=== PATIENT | male | born 1965 | race Caucasian/White ===

== ENCOUNTER → 2020-03-31 11:50 | Outpatient (BNVA) | payer SELFPAY | PROVIDERS: Family Provider Nurse Practitioner Family; PCP Nurse Practitioner Family; Referring Provider Nurse Practitioner Family; Visit Provider Nurse Practitioner Family | DX: M25.561 Pain in right knee (principal); M79.642 Pain in left hand; M79.641 Pain in right hand | CPT/HCPCS: 73130; 73562 ==

== ENCOUNTER → 2020-06-01 09:58 | Outpatient (BNVA) | payer SELFPAY | PROVIDERS: Family Provider Nurse Practitioner Family; PCP Nurse Practitioner Family; Visit Provider Internal Medicine Rheumatology | DX: M05.79 Rheumatoid arthritis with rheumatoid factor of multiple sites without organ or systems involvement (principal); M75.52 Bursitis of left shoulder; Z79.899 Other long term (current) drug therapy; F17.210 Nicotine dependence, cigarettes, uncomplicated | CPT/HCPCS: 20610; 99204; J1030 ==

== ENCOUNTER → 2020-06-03 12:52 | Outpatient (BNVA) | payer SELFPAY | PROVIDERS: Family Provider Nurse Practitioner Family; PCP Nurse Practitioner Family; Visit Provider Internal Medicine Rheumatology | DX: Z79.899 Other long term (current) drug therapy (principal); Z11.59 Encounter for screening for other viral diseases; Z11.1 Encounter for screening for respiratory tuberculosis | CPT/HCPCS: 36415; 82306; 85651; 86140; 86480; 86704; 86803; 87340 ==

== ENCOUNTER 2020-06-04 08:52 | Outpatient (CLI) | payer SELFPAY ==
--- NOTE | 2020-06-04 09:12 | XR_ITS ---
WS: [id number] RIGHT HAND: 3 VIEW(S) TECHNIQUE: PA, oblique and lateral. HISTORY: rheumatoid arthritis COMPARISON: 03/31/2020 No acute fracture or dislocation. No soft tissue or bone abnormality. Mild narrowing of the interphalangeal joint spaces. XR/XR hand RT min 3V* [id number] IMPRESSION: Mild osteoarthritis.
--- NOTE | 2020-06-04 09:12 | XR_ITS ---
WS: [id number] LEFT FOOT: 3 VIEW(S) TECHNIQUE: AP, oblique and lateral. HISTORY: rheumatoid arthritis COMPARISON: None available. No acute fracture or dislocation. Normal tarsal/metatarsal alignment. No soft tissue abnormality or bone destruction. No erosions at the metatarsal heads or osteopenia. Small calcaneal spur. XR/XR foot LT min 3V* [id number] IMPRESSION: 1. Small calcaneal spur. 2. No erosions at the metatarsal heads.
--- NOTE | 2020-06-04 09:12 | XR_ITS ---
WS: [id number] LEFT HAND: 3 VIEW(S) TECHNIQUE: PA, oblique and lateral. HISTORY: rheumatoid arthritis COMPARISON: 03/31/2020 No acute fracture or dislocation. Prior amputation involving the distal fourth phalanx and 50% of the fourth middle phalanx. No erosion s at the metacarpal heads. No subluxations or significant osteopenia. Mild degenerative changes at th e interphalangeal joint third finger. XR/XR hand LT min 3V* [id number] IMPRESSION: 1. No changes of inflammatory arthritis. 2. Partial amputation fourth finger.
--- NOTE | 2020-06-04 09:12 | XR_ITS ---
WS: [id number] RIGHT KNEE: 3 VIEW(S) TECHNIQUE: AP, oblique(s) and lateral. HISTORY: rheumatoid arthritis COMPARISON: 03/31/2020 Mild narrowing of the medial and patellofemoral joint spaces with osteophytes and hypertrophic bone f ormation. No displacement. No fracture. No joint effusion. No soft tissue abnormality. XR/XR knee RT 3V* [id number] IMPRESSION: 1. Mild medial and patellofemoral joint space arthritis. 2. No erosions or osteopenia.
--- NOTE | 2020-06-04 09:12 | XR_ITS ---
WS: [id number] CHEST 2 VIEWS HISTORY: rheumatoid arthritis COMPARISON: None available. Lungs: Mild pulmonary hyperexpansion. Flattening of the diaphragms. No pneumonia. Normal vasculature. Cardiac size: Normal. Mediastinum/Aorta: Mild atherosclerosis aorta. Bones: Normal. Lucencies in the distal clavicles may be early changes of rheumatoid arthritis. XR/XR chest 2V* [id number] IMPRESSION: 1. Mild chronic emphysema. No pneumonia. 2. Mild atherosclerosis aorta.
--- NOTE | 2020-06-04 09:12 | XR_ITS ---
WS: [id number] RIGHT FOOT: 3 VIEW(S) TECHNIQUE: AP, oblique and lateral. HISTORY: rheumatoid arthritis COMPARISON: None available. No acute fracture or dislocation. Normal tarsal/metatarsal alignment. No soft tissue abnormality or bone destruction. Small bony spur along the ventral aspect of the talus. No metatarsal head erosions. XR/XR foot RT min 3V* [id number] IMPRESSION: Minimal spurring involving the anterior talus. No erosions.
== END 2020-06-04 08:53 | disposition home or self-care (01) ==
LOC: RADWPI 08:56
PROVIDERS: Family Provider Nurse Practitioner Family; PCP Nurse Practitioner Family; Visit Provider Internal Medicine Rheumatology
DX: M06.9 Rheumatoid arthritis, unspecified (principal); M19.041 Primary osteoarthritis, right hand; Z89.022 Acquired absence of left finger(s); M77.32 Calcaneal spur, left foot; M77.31 Calcaneal spur, right foot; J43.9 Emphysema, unspecified; I70.0 Atherosclerosis of aorta
CPT/HCPCS: 71046; 73130; 73562; 73630

== ENCOUNTER → 2020-08-25 11:13 | Outpatient (BNVA) | payer SELFPAY | PROVIDERS: Family Provider Nurse Practitioner Family; PCP Nurse Practitioner Family; Visit Provider Internal Medicine Rheumatology | DX: M05.79 Rheumatoid arthritis with rheumatoid factor of multiple sites without organ or systems involvement (principal); M17.11 Unilateral primary osteoarthritis, right knee; Z79.899 Other long term (current) drug therapy; F17.210 Nicotine dependence, cigarettes, uncomplicated | CPT/HCPCS: 99214 ==

== ENCOUNTER → 2020-12-22 13:22 | Outpatient (BNVA) | payer SELFPAY | PROVIDERS: Family Provider Nurse Practitioner Family; PCP Nurse Practitioner Family; Visit Provider Internal Medicine Rheumatology | DX: M05.79 Rheumatoid arthritis with rheumatoid factor of multiple sites without organ or systems involvement (principal); Z79.899 Other long term (current) drug therapy; M17.11 Unilateral primary osteoarthritis, right knee; M75.52 Bursitis of left shoulder; F17.210 Nicotine dependence, cigarettes, uncomplicated | CPT/HCPCS: 99214 ==

== ENCOUNTER → 2021-04-06 13:27 | Outpatient (BNVA) | payer SELFPAY | PROVIDERS: Family Provider Nurse Practitioner Family; PCP Nurse Practitioner Family; Visit Provider Internal Medicine Rheumatology | DX: M05.79 Rheumatoid arthritis with rheumatoid factor of multiple sites without organ or systems involvement (principal); M17.11 Unilateral primary osteoarthritis, right knee; R29.6 Repeated falls; M75.52 Bursitis of left shoulder; Z79.899 Other long term (current) drug therapy; Z71.89 Other specified counseling; F17.200 Nicotine dependence, unspecified, uncomplicated | CPT/HCPCS: 99214 ==

== ENCOUNTER 2021-04-20 08:29 | Outpatient (CLI) | payer SELFPAY ==
--- NOTE | 2021-04-20 08:45 | MR_ITS ---
WS: [id number] MRI RIGHT KNEE NONCONTRAST TECHNIQUE: Axial PD, coronal PD fat sat, coronal PD, sagittal PD, and sagittal PD fat-sat images obta ined. CLINICAL INFORMATION: R29.6 - Repeated falls COMPARISON: None. FINDINGS: Distal quadriceps and patella tendons are intact. Normal ACL and PCL. Hypertrophic patella. Small sup rapatellar effusion. Moderate to advanced degenerative arthritis medial and lateral joint compartment s worse involving the medial joint compartment with hypertrophic changes along the joint line. Chroni c thinning of the medial and lateral meniscus. Small horizontal tear along the undersurface posterior horn medial meniscus extending to the articular surface. Normal lateral meniscus. Grade III chondromalacia patella. No subchondral edema. Diffuse subcutaneous edema about the knee jeff nt. Small popliteal cyst measuring 2.1 x 3.3 CM. Medial and lateral collateral ligaments are intact. Mode rate peripheral extrusion of the medial meniscus MR/MR knee RT wo con* [id number] IMPRESSION: 1. Normal ACL and PCL. 2. Advanced tricompartmental arthritis worse involving the medial joint compar tment and patellofemoral articulation. 3. Chronic thinning of the medial and lateral meniscus with horizontal tear po sterior horn medial meniscus extending to the articular surface. Peripheral ext rusion of the medial meniscus. 4. [id number] articulation involving the medial joint compartment with a tin y amount of subchondral edema and grade IV chondromalacia. 5. Grade III chondromalacia patella. 6. Small suprapatellar effusion with subcutaneous edema about the knee joint. 7. Small lobulated popliteal cyst. Outbridge grading:
== END 2021-04-20 08:30 | disposition home or self-care (01) ==
PROVIDERS: PCP Nurse Practitioner Family; Visit Provider Internal Medicine Rheumatology
DX: M25.569 Pain in unspecified knee (principal); R29.6 Repeated falls; S89.91XA Unspecified injury of right lower leg, initial encounter
CPT/HCPCS: 73721

== ENCOUNTER → 2021-06-10 13:57 | Outpatient (BNVA) | payer SELFPAY | PROVIDERS: PCP Family Medicine; Visit Provider Internal Medicine Rheumatology | DX: M05.79 Rheumatoid arthritis with rheumatoid factor of multiple sites without organ or systems involvement (principal); Z79.899 Other long term (current) drug therapy; M17.11 Unilateral primary osteoarthritis, right knee; R29.6 Repeated falls; Z82.61 Family history of arthritis; Z71.89 Other specified counseling; F17.200 Nicotine dependence, unspecified, uncomplicated | CPT/HCPCS: 99214 ==

== ENCOUNTER → 2021-09-28 10:47 | Outpatient (BNVA) | payer SELFPAY | PROVIDERS: PCP Family Medicine; Visit Provider Internal Medicine Rheumatology | DX: M05.79 Rheumatoid arthritis with rheumatoid factor of multiple sites without organ or systems involvement (principal); Z79.899 Other long term (current) drug therapy | CPT/HCPCS: 80076; 82565; 85025; 86140 ==

== ENCOUNTER → 2022-05-10 13:51 | Outpatient (BNVA) | payer MEDICARE, SELFPAY | PROVIDERS: PCP Family Medicine; Visit Provider Internal Medicine Rheumatology | DX: M05.79 Rheumatoid arthritis with rheumatoid factor of multiple sites without organ or systems involvement (principal); Z79.899 Other long term (current) drug therapy; Z71.89 Other specified counseling; M17.11 Unilateral primary osteoarthritis, right knee; R29.6 Repeated falls; M75.52 Bursitis of left shoulder | CPT/HCPCS: 80076; 82565; 85025; 86140; 99214 ==

== ENCOUNTER → 2022-07-20 13:58 | Outpatient (BNVA) | payer MEDICARE, SELFPAY | PROVIDERS: PCP Family Medicine; Visit Provider Internal Medicine Rheumatology | DX: M05.79 Rheumatoid arthritis with rheumatoid factor of multiple sites without organ or systems involvement (principal); Z79.899 Other long term (current) drug therapy; R74.01 Elevation of levels of liver transaminase levels; Z71.89 Other specified counseling; M75.52 Bursitis of left shoulder; Z82.61 Family history of arthritis; F17.200 Nicotine dependence, unspecified, uncomplicated | CPT/HCPCS: 99214 ==

== ENCOUNTER 2022-07-25 08:15 | Outpatient (CLI) | payer MEDICARE, SELFPAY ==
--- NOTE | 2022-07-25 08:30 | US_ITS ---
WS: [id number] RIGHT UPPER QUADRANT ULTRASOUND HISTORY: R79.89 - Other specified abnormal findings of blood chemi... COMPARISON: None available. Liver: 20.8 cm in length. Moderately enlarged liver. Coarsened echotexture. No mass. Portal Vein: Normal hepatopetal flow with monophasic waveform. Gallbladder: Normally distended gallbladder with very small mobile stones. No wall thickening or danny cholecystic fluid. CBD: 0.5 cm Pancreas: Normal size and echogenicity. Right kidney: 11.4 cm in length. Normal size and echogenicity. No hydronephrosis or mass. Aorta and IVC: Unremarkable abdominal aorta and IVC. No ascites. US/US liver [id number] IMPRESSION: 1. Cholelithiasis. No evidence for acute cholecystitis. There is very small mo bile stones layering in the gallbladder. 2. Moderate hepatomegaly with mild hepatic steatosis.
== END 2022-07-25 08:16 | disposition home or self-care (01) ==
PROVIDERS: PCP Family Medicine; Visit Provider Internal Medicine Rheumatology
DX: R79.89 Other specified abnormal findings of blood chemistry (principal)
CPT/HCPCS: 76705

== ENCOUNTER → 2022-10-18 13:57 | Outpatient (BNVA) | payer MEDICARE, SELFPAY | PROVIDERS: PCP Family Medicine; Visit Provider Internal Medicine Rheumatology | DX: M05.79 Rheumatoid arthritis with rheumatoid factor of multiple sites without organ or systems involvement (principal); Z79.899 Other long term (current) drug therapy; R74.01 Elevation of levels of liver transaminase levels; Z71.89 Other specified counseling; M75.52 Bursitis of left shoulder; Z82.61 Family history of arthritis; F17.200 Nicotine dependence, unspecified, uncomplicated | CPT/HCPCS: 99214 ==

== ENCOUNTER 2023-01-11 06:55 | Outpatient (CLI) | payer MEDICARE, SELFPAY ==
--- NOTE | 2023-01-11 07:15 | CT_ITS ---
WS: [id number] LDCT LUNG CANCER SCREENING TECHNIQUE: Noncontrast CT of the chest with coronal and sagittal reformatted images. CLINICAL INFORMATION: lung cancer screening COMPARISON: None. DLP: 137.79 mGy.cm DIvol: Mean CTDIvol: 3.10 (mGy) All CT scans at [facility] use at least one of these dose optimization techniques: automat ed exposure control; mA and/or kV adjustment per patient size (includes targeted exams where dose is matched to clinical indication); or iterative reconstruction. FINDINGS: Normal caliber thoracic aorta. No mediastinal or hilar lymphadenopathy. Coronary calcification. No ax illary lymphadenopathy. No suspicious pulmonary parenchymal abnormalities. Adrenal glands are normal. Cholelithiasis. Normal GE junction. Hypertrophic changes thoracic spine. CT/CT lung screening [id number] IMPRESSION: Cholelithiasis. This can be followed up with ultrasound. LUNG-RADS: 1S-Negative with Significant Findings FOLLOW UP: 12 Month: Continue annual screening with LDCT
== END 2023-01-11 06:56 | disposition home or self-care (01) ==
LOC: RAD 06:57
PROVIDERS: PCP Family Medicine; Visit Provider Internal Medicine Pulmonary Disease
DX: Z12.2 Encounter for screening for malignant neoplasm of respiratory organs (principal); R06.02 Shortness of breath; Z71.6 Tobacco abuse counseling
CPT/HCPCS: 71271

== ENCOUNTER → 2023-01-17 13:09 | Outpatient (BNVA) | payer MEDICARE, SELFPAY | PROVIDERS: PCP Family Medicine; Visit Provider Internal Medicine Rheumatology | DX: M05.79 Rheumatoid arthritis with rheumatoid factor of multiple sites without organ or systems involvement (principal); Z79.899 Other long term (current) drug therapy; Z71.89 Other specified counseling | CPT/HCPCS: 99214 ==

== ENCOUNTER 2023-01-25 07:52 | Outpatient (CLI) | payer MEDICARE, SELFPAY | END 2023-01-25 07:53 | disposition home or self-care (01) | LOC: RT 07:54 | PROVIDERS: PCP Family Medicine; Visit Provider Internal Medicine Pulmonary Disease | DX: R06.02 Shortness of breath (principal) | CPT/HCPCS: 94010; 94618; 94726; 94729; 99204 ==

== ENCOUNTER 2023-03-16 20:00 | Outpatient (CLI) | payer MEDICARE, SELFPAY | END 2023-03-16 20:01 | disposition home or self-care (01) | LOC: SLEEP 03-17 05:04 | PROVIDERS: PCP Family Medicine; Visit Provider Internal Medicine Pulmonary Disease | DX: G47.33 Obstructive sleep apnea (adult) (pediatric) (principal); R06.00 Dyspnea, unspecified; G47.36 Sleep related hypoventilation in conditions classified elsewhere | CPT/HCPCS: 95810 ==

== ENCOUNTER → 2023-04-18 13:16 | Outpatient (BNVA) | payer MEDICARE, SELFPAY | PROVIDERS: PCP Family Medicine; Visit Provider Internal Medicine Rheumatology | DX: M05.79 Rheumatoid arthritis with rheumatoid factor of multiple sites without organ or systems involvement (principal); Z79.899 Other long term (current) drug therapy; Z71.89 Other specified counseling; Z82.61 Family history of arthritis; F17.210 Nicotine dependence, cigarettes, uncomplicated | CPT/HCPCS: 99214 ==

== ENCOUNTER → 2023-07-25 13:20 | Outpatient (BNVA) | payer MEDICARE, SELFPAY | PROVIDERS: PCP Family Medicine; Visit Provider Internal Medicine Rheumatology | DX: Z79.899 Other long term (current) drug therapy (principal); M05.79 Rheumatoid arthritis with rheumatoid factor of multiple sites without organ or systems involvement; Z71.89 Other specified counseling | CPT/HCPCS: 99214 ==

== ENCOUNTER → 2023-11-08 12:28 | Outpatient (BNVA) | payer MEDICARE, SELFPAY | PROVIDERS: PCP Family Medicine; Visit Provider Internal Medicine Rheumatology | DX: M05.79 Rheumatoid arthritis with rheumatoid factor of multiple sites without organ or systems involvement (principal); Z79.899 Other long term (current) drug therapy; Z71.89 Other specified counseling | CPT/HCPCS: 99214 ==

== ENCOUNTER → 2023-11-17 09:11 | Outpatient (BNVA) | payer MEDICARE, SELFPAY | PROVIDERS: PCP Family Medicine; Visit Provider Internal Medicine Pulmonary Disease | DX: G47.30 Sleep apnea, unspecified (principal); R06.02 Shortness of breath; M05.79 Rheumatoid arthritis with rheumatoid factor of multiple sites without organ or systems involvement; E66.9 Obesity, unspecified; Z68.41 Body mass index [BMI] 40.0-44.9, adult; Z12.2 Encounter for screening for malignant neoplasm of respiratory organs; Z87.891 Personal history of nicotine dependence | CPT/HCPCS: 99214 ==

== ENCOUNTER → 2024-04-10 13:17 | Outpatient (BNVA) | payer MEDICARE, SELFPAY | PROVIDERS: PCP Family Medicine; Visit Provider Internal Medicine Rheumatology | DX: M05.79 Rheumatoid arthritis with rheumatoid factor of multiple sites without organ or systems involvement (principal); M75.52 Bursitis of left shoulder; Z79.899 Other long term (current) drug therapy; Z71.85 Encounter for immunization safety counseling; Z11.1 Encounter for screening for respiratory tuberculosis; F17.210 Nicotine dependence, cigarettes, uncomplicated | CPT/HCPCS: 99214 ==

== ENCOUNTER → 2024-08-14 15:10 | Outpatient (BNVA) | payer MEDICARE, SELFPAY | PROVIDERS: PCP Family Medicine; Visit Provider Internal Medicine Rheumatology | DX: Z79.899 Other long term (current) drug therapy (principal); M05.79 Rheumatoid arthritis with rheumatoid factor of multiple sites without organ or systems involvement; M75.52 Bursitis of left shoulder; Z71.89 Other specified counseling; F17.210 Nicotine dependence, cigarettes, uncomplicated | CPT/HCPCS: 36415; 80076; 82565; 85025; 85651; 86140; 99214 ==

== ENCOUNTER → 2024-12-04 13:35 | Outpatient (BNVA) | payer MEDICARE, SELFPAY | PROVIDERS: PCP Family Medicine; Visit Provider Internal Medicine Rheumatology | DX: M05.79 Rheumatoid arthritis with rheumatoid factor of multiple sites without organ or systems involvement (principal); Z79.899 Other long term (current) drug therapy; Z71.89 Other specified counseling | CPT/HCPCS: 36415; 80076; 82565; 82947; 83036; 85025; 85651; 86140; 99214 ==

== ENCOUNTER → 2025-01-07 13:54 | Outpatient (BNVA) | payer MEDICARE, SELFPAY | PROVIDERS: Family Provider Nurse Practitioner; PCP Nurse Practitioner; Referring Provider Internal Medicine Rheumatology; Visit Provider Internal Medicine Rheumatology | DX: R74.8 Abnormal levels of other serum enzymes (principal) | CPT/HCPCS: 80076 ==

== ENCOUNTER → 2025-01-28 13:09 | Outpatient (BNVA) | payer MEDICARE, SELFPAY | PROVIDERS: Family Provider Nurse Practitioner; PCP Nurse Practitioner; Visit Provider Nurse Practitioner Family | DX: L85.8 Other specified epidermal thickening (principal); S50.912A Unspecified superficial injury of left forearm, initial encounter; L82.1 Other seborrheic keratosis; D22.4 Melanocytic nevi of scalp and neck; D48.5 Neoplasm of uncertain behavior of skin; L91.8 Other hypertrophic disorders of the skin; R20.9 Unspecified disturbances of skin sensation; R20.8 Other disturbances of skin sensation; R23.8 Other skin changes; L53.8 Other specified erythematous conditions; L57.0 Actinic keratosis; X58.XXXA Exposure to other specified factors, initial encounter | CPT/HCPCS: 11104; 17000; 17110; 99203 ==

== ENCOUNTER → 2025-03-13 09:35 | Outpatient (BNVA) | payer MEDICARE, SELFPAY | PROVIDERS: PCP Family Medicine; Visit Provider Internal Medicine Rheumatology | DX: M05.79 Rheumatoid arthritis with rheumatoid factor of multiple sites without organ or systems involvement (principal); Z79.899 Other long term (current) drug therapy; Z71.89 Other specified counseling | CPT/HCPCS: 36415; 80076; 82306; 82565; 85025; 85651; 86140; 86480; 86704; 86803; 87340; 99214 ==

== ENCOUNTER → 2025-03-17 11:29 | Outpatient (BNVA) | payer MEDICARE, SELFPAY | PROVIDERS: PCP Family Medicine; Visit Provider Nurse Practitioner | DX: E11.9 Type 2 diabetes mellitus without complications (principal) | CPT/HCPCS: 83036 ==

== ENCOUNTER 2025-04-10 08:04 | Oncology outpatient (recurring) (ONCR) | payer MEDICARE, SELFPAY ==
[2025-04-10 08:32] VITALS: BP 157/94; PULSE 73; TEMP 35.9; O2SAT 95
[2025-04-10] MEDS: diphenhydrAMINE 50 mg/mL SDV 1mL 25 MG IVP (09:45)
[2025-04-10] MEDS: abatacept 500 MG in sodium chloride 0.9% (100 ml) 100 ML 200 MG IV (10:27)
[2025-04-10 11:16] VITALS: BP 162/88; PULSE 58; TEMP 36.2; O2SAT 95
[2025-04-10] MEDS: methylPREDNISolone sod succ 40 mg/mL INJ 20 MG IVP ×2 (11:39→12:23)
[2025-04-10 12:42] VITALS: BP 165/84; PULSE 59; TEMP 35.9; O2SAT 95
== END 2025-04-10 23:59 | disposition home or self-care (01) ==
PROVIDERS: PCP Family Medicine; Visit Provider Internal Medicine Rheumatology
DX: M06.9 Rheumatoid arthritis, unspecified (principal); Z79.899 Other long term (current) drug therapy
CPT/HCPCS: 96365; 96375; A4222; J0129; J1200; J2919; J7050; J9999

== ENCOUNTER → 2025-07-25 09:18 | Outpatient (BNVA) | payer MEDICARE, SELFPAY | PROVIDERS: PCP Family Medicine; Visit Provider Nurse Practitioner | DX: E11.9 Type 2 diabetes mellitus without complications (principal); I10 Essential (primary) hypertension | CPT/HCPCS: 80053; 83036 ==

== ENCOUNTER → 2025-08-04 10:52 | Outpatient (BNVA) | payer MEDICARE, SELFPAY | PROVIDERS: PCP Family Medicine; Visit Provider Internal Medicine Rheumatology | DX: M05.79 Rheumatoid arthritis with rheumatoid factor of multiple sites without organ or systems involvement (principal); Z79.899 Other long term (current) drug therapy; Z71.85 Encounter for immunization safety counseling; F17.210 Nicotine dependence, cigarettes, uncomplicated; Z71.6 Tobacco abuse counseling | CPT/HCPCS: 99214 ==